=== PATIENT | male | born 1955 | race Caucasian/White ===

== ENCOUNTER 2025-04-21 19:53 | Emergency (ER) | payer OTHER, SELFPAY ==
[2025-04-21 20:02] VITALS: BP 171/95
[2025-04-21 20:41] LABS: Hematocrit 39.2 % (39.0-52.0); Hemoglobin 13.4 g/dL (13.0-18.0); Mean Corp Hgb Conc. 34.2 g/dL (33.0-37.0); Mean Corpuscular Volume 90.1 fL (80.0-94.0); Nucleated Red Blood Cells % 0 % (-); Platelet Count 230 10^3/uL (130-400); Red Cell Dist. Width 13.4 % (11.5-14.5)
[2025-04-21 20:49] LABS: ALT (SGPT) 38 U/L (0-50); AST (SGOT) 36 U/L (17-59); Albumin 4.1 g/dl (3.5-5.0); Alkaline Phosphatase 44 U/L (38-126); Blood Urea Nitrogen 16 mg/dl (9-20); Calcium 9.9 mg/dl (8.4-10.2); Carbon Dioxide 27 mmol/L (22-30); Chloride 103 mmol/L (98-107); Glucose 84 mg/dl (70-99); Lipase 346 U/L (23-300); Potassium 4.7 mmol/L (3.5-5.1); Sodium 132 mmol/L (135-145); Total Protein 6.7 g/dl (6.3-8.2); eGFR > 60.00
[2025-04-21 21:00] LABS: Troponin I < 0.012 ng/ml
[2025-04-21 21:56] VITALS: BP 149/76
[2025-04-21 22:00] VITALS: BP 156/87
[2025-04-21 23:00] VITALS: BP 137/76
--- NOTE | 2025-04-21 23:19 | ED.GENMED ---
History of Present Illness
General
Chief Complaint: Dizziness
Source: patient
Exam Limitations: none
Time Seen by Provider: 04/21/25 23:19
Nursing documentation reviewed up to this point in time: agreed with
History of Present Illness
History of Present Illness:
69-year-old male with history of GERD, hiatal hernia, diverticulitis, BPH, colon resection presents for 'pulsation in my abdomen.'
Patient was diagnosed with diverticulitis on March 24, he was put on Flagyl and Levaquin for 30 days (I confirmed this with him it was 30 days). He stopped the medication yesterday which was the -day
He looked at the paperwork of the Levaquin and 'it said it could cause an aneurysm.' He was laying watching TV yesterday and felt his abdomen and felt the pulsations. His told him her father had an aneurysm so he is here wanting to be sure he
doesn't have and aneurysm. He states he has some dizziness and lightheadedness yesterday and today but has neither of these at this time.
Patient has had no nausea or vomiting, no diarrhea, no abdominal pain
Past History
Past History
ED Past Medical History: HTN, Hypercholesterolemia and Other (Rheumatoid arthritis)
ED Past Surgical History: Bowel resection and Other (Hernia repair)
Social History
Tobacco: Non-smoker
Alcohol: Occasional
Drug: None
Personal:
Living: with family
Employment: Retired
Family History
Family History: CAD and Other
Review of Systems
Review of Systems
Allergies reviewed?: Yes
All Other Systems: ROS reviewed and negative except as documented in HPI and ROS
Phy Exam
Physical Exam
Physical Exam:
GENERAL: No acute distress. A&Ox3.
CONSTITUTIONAL: Afebrile.
EYES: clear, conjunctivae normal
ENMT: moist mucus membranes, Pharynx nl
RESPIRATORY: Regular respirations, nonlabored, lungs clear.
CARDIOVASCULAR: Regular rate and rhythm, no murmurs, no rubs.
GI: Soft, nontender, normal BS, abdomen is flat, palpable pulsations of aorta
MUSCULOSKELETAL: Moves with ease. Well perfused.
SKIN: Warm, dry, pink
PSYCH: Normal mood and affect. Well kept, interactive and appropriate
NEUROLOGIC: Awake, alert and oriented. No focal neurological deficits
Course
Orders/Labs/Results
Orders:
Orders
04/21/25 20:13
ECG [Electrocardiogram (*1)] Urgent
Reason for Study: Vertigo / Dizzy
EKG- Treatment ONCE
04/21/25 20:26
Complete Blood Count/With Diff Urgent
Comprehensive Metabolic Panel Urgent
Lipase Urgent
Troponin I Urgent
04/21/25 23:58
HYDROmorphone [Dilaudid] 1 mg IV NOW STA
Ondansetron Injectable [Zofran] 4 mg IV NOW STA
04/22/25 00:00
US Abdomen Complete/Upper Urgent
Reason For Exam: mid abdominal pain
Abnormal Lab Results
04/21/25
20:26
RBC 4.35 L 10^6/uL
(4.70-6.10)
Absolute Monos (auto) 0.8 H 10^3/uL
(0.1-0.6)
Monocytes % 11.4 H %
(1.7-9.3)
Sodium 132 L mmol/L
(135-145)
Lipase 346 H U/L
(23-300)
04/21/25 20:26
04/21/25 20:26
Vital Signs
Initial and Last Documented VS:
Initial Vital Signs
Temp Pulse Resp BP Pulse Ox
98.6 F 84 16 171/95 98
04/21/25 20:02 04/21/25 20:02 04/21/25 20:02 04/21/25 20:02 04/21/25 20:02
Last Documented Vital Signs
Temp Pulse Resp BP Pulse Ox
98.6 F 65 19 137/80 96
04/21/25 20:02 04/22/25 01:43 04/22/25 01:43 04/22/25 01:43 04/22/25 01:43
Product Development Assistant consulted with Physician
Product Development Assistant consulted with physician?: Yes
Name of Physician Consulted: Silvano
MDM/Problems Addressed
MDM/Problems Addressed:
69-year-old male with history of GERD, hiatal hernia, diverticulitis, BPH, colon resection presents for 'pulsation in my abdomen.'
Patient was diagnosed with diverticulitis on March 24, he was put on Flagyl and Levaquin for 30 days (I confirmed this with him it was 30 days). He stopped the medication yesterday which was the 28th-day
He looked at the paperwork of the Levaquin and 'it said it could cause an aneurysm.' He was laying watching TV yesterday and felt his abdomen and felt the pulsations. His told him her father had an aneurysm so he is here wanting to be sure he
doesn't have and aneurysm. He states he has some dizziness and lightheadedness yesterday and today but has neither of these at this time.
Patient has had no nausea or vomiting, no diarrhea, no abdominal pain
NAD
Abdomen benign, there is a palpable pulse consistent with normal aortic pulsation. No palpable masses.
VSS.
EKG: NSR: HR 65
04/22 12:30 a.m.
CBC, CMP unremarkable
Lipase mildly elevated at [address] Schaefer
Abdominal ultrasound results read. No abnormal finding, no mention of the aorta.
I called and spoke with Asad Gibson MD who was the one that read the ultrasound and he looked at it again and said it looks like the watch repair technician tried to get some views of the aorta but there was too much bowel gas and he could not visualize
it.
I discussed this with patient and offered to do a CAT scan with IV contrast and he declines saying 'I have already had too many CAT scans.' I explained to him that is the only way we can adequately examine the aorta for an aortic aneurysm and he
still kindly declines.
He has no indication of aortic aneurysm.
His blood pressure is now 137/80.
*Pulse Oximetry
SaO2: 98
Oxygen Mode of Delivery: Room air
Patient hypoxic: no
*EKG
EKG Intrepretation Date: 04/22/25
Interpretation: normal
Heart Rate: 65
Rate: normal
Rhythm: sinus
Warden: normal axis
Interval: normal interval
QRS Pattern: normal QRS
Ischemia: no ischemia
*Critical Care Note
Total Time (30-74mins, 75-104mins- exclusive of procedures): Not Applicable
ED Attending Note
-
Portions of this chart may have been created with voice recognition software.� Occasional wrong word or��sound alike� substitutions may have occurred due to the inherent limitations of voice recognition software.
Discharge Plan
Departure
Patient Disposition: Home (Routine Discharge)
Date of Disposition: 04/22/25
Time of Disposition: 01:42
Patient with high blood pressure during this ER visit?: No
Condition: Good
Discharge Problem:
Aortic pulsation in abdomen
Prescriptions:
No Action
atorvastatin 20 MG tablet
20 mg PO QPM
lisinopril 20 MG tablet
20 mg PO DAILY
pantoprazole 20 MG tablet,delayed release (DR/EC)
20 mg PO DAILY
metronidazole 500 MG tablet
500 mg PO TID Qty: 21 0RF
levofloxacin 500 MG tablet
500 mg PO DAILY Qty: 7 0RF
Referrals:
Gwyn Romero MD [Family Provider, Internal Medicine]
Activity Restrictions/Additional Instructions:
As we discussed, the pulsation in your abdomen is a normal aortic pulsation.
Your lab work is normal
There is no indication of an aortic aneurysm
The Ultrasound did not visualize the aorta, this is not unusual.
Interventions
Interventions:
*Risk Screen - Suicide Last Done: 04/21/25 23:00
*General Assessment Last Done: 04/21/25 23:00
*Neglect/Abuse Screening Last Done: 04/21/25 23:00
*ED- Fall Risk Assessment Last Done: 04/21/25 23:00
*Nursing Disposition Last Done: 04/22/25 01:57
ED- Neurological Assessment Last Done: 04/21/25 23:00
Discharge Date and Time
Discharge Date/Time: 04/22/25 01:57
Print Language: KHMER
[2025-04-22 01:43] VITALS: BP 137/80
== END 2025-04-22 01:57 | disposition home or self-care (01) ==
LOC: EMR 19:53
PROVIDERS: Emergency Medicine; EMERGENCY PHYSICIAN Emergency Medicine; FAMILY PHYSICIAN Internal Medicine
DX: R19.8 Other specified symptoms and signs involving the digestive system and abdomen (principal); I10 Essential (primary) hypertension; E78.00 Pure hypercholesterolemia, unspecified; K21.9 Gastro-esophageal reflux disease without esophagitis; N40.0 Benign prostatic hyperplasia without lower urinary tract symptoms; M06.9 Rheumatoid arthritis, unspecified; Z82.49 Family history of ischemic heart disease and other diseases of the circulatory system
CPT/HCPCS: 99284; 76700; 80053; 83605; 83690; 84484; 85025; 93005

== ENCOUNTER 2025-05-24 05:46 | Day surgery (SDC) | payer OTHER, SELFPAY ==
[2025-05-07 08:59] LABS: Hematocrit 37.6 % (39.0-52.0); Hemoglobin 12.9 g/dL (13.0-18.0); Mean Corp Hgb Conc. 34.3 g/dL (33.0-37.0); Mean Corpuscular Volume 92.4 fL (80.0-94.0); Platelet Count 222 10^3/uL (130-400); Red Cell Dist. Width 13.3 % (11.5-14.5)
[2025-05-07 11:59] LABS: Blood Urea Nitrogen 15 mg/dl (9-20); Calcium 9.6 mg/dl (8.4-10.2); Carbon Dioxide 27 mmol/L (22-30); Chloride 104 mmol/L (98-107); Glucose 97 mg/dl (70-99); Potassium 4.8 mmol/L (3.5-5.1); Sodium 136 mmol/L (135-145); eGFR > 60.00
[2025-05-07 16:27] VITALS: BMI 28.5
[2025-05-24] VITALS (8 sets, daily range): BP systolic 143–156; BP diastolic 67–81; BMI 28.5
[2025-05-24] MEDS: TYLENOL 1000 MG PO (06:22)
[2025-05-24] MEDS: NORMOSOL-R/PLASMALYTE-A 1000 IV (06:32)
--- NOTE | 2025-05-24 07:02 | HP.FOC2 ---
Focused History & Physical
Chief Complaint
HPI:
Chief Complaint: Recurrent left inguinal hernia
HPI / Indication for Planned Procedure: 69-year-old male recently seen in outpatient surgical evaluation secondary to a recurrent left inguinal hernia that he had been following expectantly. The hernia has become a bit more bothersome prompting
recent outpatient surgical follow-up. He presents today for scheduled operative correction.
Relevant Past Medical History: Other (Hyperlipidemia, elevated PSA, hypertension, history of diverticulitis)
Relevant Social History: Negative
Relevant Family History: Negative
Relevant Past Surgical History: Positive for (Open bilateral inguinal hernia repair, recurrent right inguinal hernia repair, sigmoidectomy, kidney stone extraction)
Review of Systems
Review of Pertinent Systems: All Systems Negative
Medication
See Medication form for detailed medications: Yes
Medication List (including Herbals & OTC):
atorvastatin 20 mg tablet 20 mg PO QPM 05/19/17
lisinopril 20 mg tablet 20 mg PO DAILY 05/19/17
Bifidobacterium infantis 10.5 mg (10 million cell) chewable tablet (Align (B.infantis)) 10.5 mg PO DAILY 05/13/25
Vitamin B-12 1 tab PO DAILY 05/13/25
Vitamin B-6 1 tab PO DAILY 05/13/25
Vitamin C 1 tab PO DAILY 05/13/25
Vitamin D3 1 cap PO DAILY 05/13/25
diphenhydramine HCl 25 mg capsule (ZzzQuil) 50 mg PO HS PRN Insomnia 05/13/25
esomeprazole magnesium 20 mg capsule,delayed release (Nexium) 20 mg PO DAILY 05/13/25
magnesium 200 mg tablet 400 mg PO HS 05/13/25
psyllium 1 tbsp PO DAILY 05/13/25
tamsulosin 0.4 mg capsule 0.4 mg PO HS 05/13/25
Medications Reviewed: Yes
Allergies and Reactions
Patient has Allergies: Yes
Noted Allergies and Reactions:
Allergy/AdvReac Type Severity Reaction Status Date / Time
NKA - No Known Allergies Allergy Severe NKDA Uncoded 05/24/25 06:17
Pertinent Physical Exam
All Other Systems: Negative
Head/Neck: Normal
Lungs: Normal
Heart: Normal
Abdomen: Other (Reducible recurrent left inguinal hernia)
Extremities: Normal
Neurological: Normal
Diagnosis / Assessment
69-year-old male presenting for scheduled operative correction recurrent left inguinal hernia
Plan / Procedure
Robotic assisted laparoscopic repair of recurrent left inguinal hernia with mesh
Anesthesia/Sedation to be done by Anesthesia Provider: Yes
--- NOTE | 2025-05-24 07:05 | W.SUR.PREOP ---
Pre-Operative Surgical Note
-
I have examined this patient prior to the performance of the scheduled procedure.
The patient's condition is unchanged from the time of the current History and
Physical and the patient is able to undergo the scheduled procedure.
--- NOTE | 2025-05-24 08:54 | W.IMMPOSTOP ---
Addendum entered and electronically signed by Roni Valle MD 05/24/25 09:10:
#[id number]
Original Note:
Surgical Immed Post Op Note
-
Primary Surgeon: Roni Valle MD
Assisting Surgeon: Cait ADAM
Pre-op Diagnosis: Recurrent left inguinal hernia
Post-op Diagnosis: Recurrent left inguinal hernia
Procedure Performed: Robotic assisted laparoscopic KEVIN repair recurrent left inguinal hernia with mesh; 3D max extra-large mid weight
Anesthesia Type: GETA +0.25% Marcaine
Specimen / Cultures: None
Estimated Blood Loss: 8 mL
Complications: None immediate
Operative Findings: Few filmy adhesions from previous surgical history. Distended bladder visualized upon start of procedure, Lauren catheter placed uneventfully for decompression. Left direct inguinal hernia -2 separate tears along Isaias's
ligament. No indirect inguinal hernia recurrence but transversalis fascial fibers attenuated with visualized muscle parallel to the iliopubic tract. 3D max mid weight extra-large mesh repair with good coverage of entire myopectineal orifice.
Right inguinal region unremarkable.
== END 2025-05-24 10:46 | disposition home or self-care (01) ==
LOC: SDS 05:46
PROVIDERS: ATTENDING PHYSICIAN Surgery; FAMILY PHYSICIAN Internal Medicine
DX: K40.91 Unilateral inguinal hernia, without obstruction or gangrene, recurrent (principal)
CPT/HCPCS: 49651; 36415; 80048; 85027; 93005; C1781